=== PATIENT | male | born 1985 | race Two or more races ===

== ENCOUNTER 2017-02-06 14:50 | Emergency (ER) | payer SELFPAY ==
[2017-02-06] MEDS ORDERED: IV NORMAL SALINE 1,000ML 1,000 ML ONE (14:55)
[2017-02-06] MEDS ORDERED: ONDANSETRON PF 4 MG/2 ML VIAL. ONE (14:55)
[2017-02-06 15:14] LABS: BASO % 0 % (0-3); EOS # 0.1 x10^3/uL (0.0-0.7); EOS % 1 % (0-3); HEMATOCRIT 44.9 % (39.0-53.0); HEMOGLOBIN 15.4 g/dL (13.0-17.5); LYMPH # 2.7 x10^3/uL (1.0-4.8); LYMPH % 30 % (24-48); MEAN CORPUSCULAR HEMOGLOBIN 31 pg (25-35); MEAN CORPUSCULAR HGB CONC 34 g/dL (31-37); MEAN CORPUSCULAR VOLUME 89 fL (79-100); MONO # 0.6 x10^3/uL (0.0-1.1); MONO % 7 % (0-9); NEUT # 5.5 x10^3uL (1.8-7.7); NEUT % 62 % (31-73); PLATELET COUNT 280 x10^3/uL (140-400); RED BLOOD COUNT 5.07 x10^6/uL (4.30-5.70); RED CELL DISTRIBUTION WIDTH 12.7 % (11.5-14.5)
[2017-02-06] MEDS ORDERED: ETOMIDATE 40 MG/20 ML VIAL. IV ONE ×2 (15:30→16:00)
[2017-02-06] MEDS ORDERED: SUCCINYLCHOLINE 200 MG/10 ML VIAL. IV ONE (15:30)
[2017-02-06 15:33] LABS: ALBUMIN 4.1 g/dL (3.4-5.0); CALCIUM 8.8 mg/dL (8.5-10.1); CREATININE 1.5 mg/dL (0.7-1.3); DIRECT BILIRUBIN 0.3 mg/dL (0.0-0.2); GFR 55.3; POTASSIUM 3.7 mmol/L (3.5-5.1); TOTAL BILIRUBIN 1.6 mg/dL (0.2-1.0); TOTAL PROTEIN 8.3 g/dL (6.4-8.2)
[2017-02-06] MEDS ORDERED: PIP/TAZO PER PHARMACY MC PRN (15:45)
[2017-02-06] MEDS ORDERED: VECURONIUM 10 MG VIAL. IV ONE ×2 (16:00→17:45)
[2017-02-06] MEDS ORDERED: IV NORMAL SALINE 1,000ML 1,000 ML IV ONE ×3 (16:00→16:15)
[2017-02-06] MEDS ORDERED: SUCCINYLCHOLINE 200 MG/10 ML VIAL. ONE (16:00)
[2017-02-06] MEDS ORDERED: FENTANYL STANDARD PCA 30 ML IV PRN (16:00)
[2017-02-06] MEDS ORDERED: ROCURONIUM 50 MG/5 ML VIAL. ONE (16:00)
--- NOTE | 2017-02-06 16:04 | ED.ADGEN ---
Past History Additional Past Medical Histor: ams Adult General Chief Complaint Chief Complaint Altered mental status HPI HPI Patient is a 31 year old male who presents with her mental status. Patient brought in by EMS. Patient reportedly went to the [facility] where he was asked to perform a drug screen due to his parole conditions. He walked back out of the facility was witnessed walking across the street, vomited and fell to the ground. When EMS arrived the patient appeared somewhat responsive laying in his vomit but then became combative and received 10 intranasal Versed that calmed him down. They did not report any hypoxia. Patient has not been to our facility before, there is no drug paraphernalia noted to be on the patient, no signs of trauma. Review of Systems Review of Systems unAble to obtain due to medical condition Current Medications Current Medications Current Medications Medications (Trade) Dose Ordered Sig/Ashli Start Time Stop Time Status Last Admin Dose Admin Etomidate (Amidate) 20 mg 1X ONCE 02/06/17 15:30 02/06/17 16:29 DC 02/06/17 15:30 20 MG Fentanyl Citrate (Fentanyl 2ml Vial) 100 mcg 1X ONCE 02/06/17 17:40 02/06/17 17:41 02/06/17 17:16 100 MCG Lorazepam 100 mg/ Sodium Chloride 150 ml @ 1.5 mls/hr CONT PRN 02/06/17 16:50 02/06/17 16:50 DC Midazolam HCl 100 ml @ 0 mls/hr 1X ONCE 02/06/17 16:30 02/06/17 16:37 DC Midazolam HCl 5 mg 5 mg 1X ONCE 02/06/17 16:15 02/06/17 16:16 DC 02/06/17 16:15 5 MG Ondansetron HCl (Zofran) 4 mg STK-MED ONCE 02/06/17 14:55 02/06/17 14:56 DC Piperacillin Sod/ Tazobactam Sod (Zosyn Per Pharmacy) 1 each PRN DAILY PRN 02/06/17 15:45 Piperacillin Sod/ Tazobactam Sod 4.5 gm/Sodium Chloride 50 ml @ 100 mls/hr 1X ONCE 02/06/17 16:30 02/06/17 16:59 DC 02/06/17 16:30 100 MLS/HR Sodium Chloride (Iv Sodium Chloride 0.9% 1,000ml) 1,000 ml @ 1,000 mls/hr 1X ONCE 02/06/17 16:15 02/06/17 17:14 DC 02/06/17 16:15 1,000 MLS/HR Sodium Chloride (Iv Sodium Chloride 0.9% 500ml) 500 ml @ As Directed STK-MED ONCE 02/06/17 16:39 02/06/17 16:40 DC Succinylcholine Chloride 100 mg 100 mg 1X ONCE 02/06/17 15:30 02/06/17 16:29 DC 02/06/17 15:30 100 MG Vancomycin HCl 1 gm STK-MED ONCE 02/06/17 16:39 02/06/17 16:40 DC Vancomycin HCl 2 gm/Sodium Chloride 500 ml @ 250 mls/hr 1X ONCE 02/06/17 16:45 02/06/17 16:55 DC Allergies Allergies Allergies Coded Allergies Type Severity Reaction Last Updated Verified Unable to Assess 02/06/17 No Physical Exam Physical Exam Constitutional: Well developed, well nourished, no acute distress, non-toxic appearance. [] HENT: Normocephalic, atraumatic, bilateral external ears normal, oropharynx moist, no oral exudates, nose normal. [] Eyes: PERRLA, EOMI, conjunctiva normal, no discharge. [] Neck: Normal range of motion, no tenderness, supple, no stridor. [] Cardiovascular:Heart rate regular rhythm, no murmur [] Lungs & Thorax: Bilateral breath sounds clear to auscultation [] Abdomen: Bowel sounds normal, soft, no tenderness, no masses, no pulsatile masses. [] Skin: Warm, dry, no erythema, no rash. [] Back: No tenderness, no CVA tenderness. [] Extremities: No tenderness, no cyanosis, no clubbing, ROM intact, no edema. [] Neurologic: Alert and oriented X 3, normal motor function, normal sensory function, no focal deficits noted. [] Psychologic: Affect normal, judgement normal, mood normal. [] Current Patient Data Vital Signs Vital Signs Date Time Temp Pulse Resp B/P Pulse Ox O2 Delivery O2 Flow Rate FiO2 02/06/17 17:16 18 100 Ventilator 02/06/17 15:00 98.9 140 Lab Results Laboratory Tests Test 02/06/17 14:50 02/06/17 14:59 02/06/17 15:15 White Blood Count 9.0x10^3/uL (4.0-11.0) Red Blood Count 5.07x10^6/uL (4.30-5.70) Hemoglobin 15.4g/dL (13.0-17.5) Hematocrit 44.9% (39.0-53.0) Mean Corpuscular Volume 89fL (79-100) Mean Corpuscular Hemoglobin 31pg (25-35) Mean Corpuscular Hemoglobin Concent 34g/dL (31-37) Red Cell Distribution Width 12.7% (11.5-14.5) Platelet Count 280x10^3/uL (140-400) Neutrophils (%) (Auto) 62% (31-73) Lymphocytes (%) (Auto) 30% (24-48) Monocytes (%) (Auto) 7% (0-9) Eosinophils (%) (Auto) 1% (0-3) Basophils (%) (Auto) 0% (0-3) Neutrophils # (Auto) 5.5x10^3uL (1.8-7.7) Lymphocytes # (Auto) 2.7x10^3/uL (1.0-4.8) Monocytes # (Auto) 0.6x10^3/uL (0.0-1.1) Eosinophils # (Auto) 0.1x10^3/uL (0.0-0.7) Basophils # (Auto) 0.0x10^3/uL (0.0-0.2) Sodium Level 137mmol/L (136-145) Potassium Level 3.7mmol/L (3.5-5.1) Chloride Level 101mmol/L (98-107) Carbon Dioxide Level 24mmol/L (21-32) Anion Gap 12 (6-14) Blood Urea Nitrogen 12mg/dL (8-26) Creatinine 1.5mg/dL (0.7-1.3) H Estimated GFR (Cockcroft-Gault) 55.3 Glucose Level 162mg/dL (70-99) H Lactic Acid Level 6.8mmol/L (0.4-2.0) *H Calcium Level 8.8mg/dL (8.5-10.1) Total Bilirubin 1.6mg/dL (0.2-1.0) H Direct Bilirubin 0.3mg/dL (0.0-0.2) H Aspartate Amino Transferase (AST) 74U/L (15-37) H Alanine Aminotransferase (ALT) 63U/L (16-63) Alkaline Phosphatase 80U/L (46-116) Ammonia 87mcmol/L (11-34) H Total Protein 8.3g/dL (6.4-8.2) H Albumin 4.1g/dL (3.4-5.0) Ethyl Alcohol Level < 10mg/dL (0-10) Creatine Kinase 1866U/L (39-308) H Urine Collection Type Unknown Urine Color Yellow Urine Clarity Clear Urine pH 5.5 Urine Specific [place] 1.020 Urine Protein 30 mg/dl (NEG-TRACE) Urine Glucose (UA) Negmg/dL (NEG) Urine Ketones (Stick) Negmg/dL (NEG) Urine Blood Neg (NEG) Urine Nitrite Neg (NEG) Urine Bilirubin Neg (NEG) Urine Urobilinogen Dipstick 0.2mg/dL (0.2 mg/dL) Urine Leukocyte Esterase Neg (NEG) Urine RBC Occ/HPF (0-2) Urine WBC Occ/HPF (0-4) Urine Squamous Epithelial Cells None/LPF Urine Bacteria 0/HPF (0-FEW) Urine Hyaline Casts Few/HPF Urine Mucus Mod/LPF Urine Opiates Screen Neg (NEG) Urine Methadone Screen Neg (NEG) Urine Barbiturates Neg (NEG) Urine Phencyclidine Screen Neg (NEG) Urine Amphetamine/Methamphetamine Neg (NEG) Urine Benzodiazepines Screen Pos (NEG) Urine Cocaine Screen Neg (NEG) Urine Cannabinoids Screen Neg (NEG) Urine Ethyl Alcohol Neg (NEG) EKG EKG 134 bpm, sinus tach, normal axis, normal intervals, no appreciable ST elevation or depression, nonischemic T waves, interpreted by me [] Radiology/Procedures Radiology/Procedures 1 View chest x-ray shows appropriate placement of the OG tube and the endotracheal tube, no significant pulmonary opacity noted, lungs appeared inflated, no obvious bony injury, normal cardiac silhouette, interpreted by me [ ] CT results reviewed. Indication: resp acidosis, altered mental status Consent: emergent Medications Used: etomidate, succinycholine Procedure: The patient was placed in the neutral. . Intubation was performed direct glidescope visualization. 7.5 endotracheal tube. 23 at teeth. Initial confirmation of placement included [id number], . A chest x-ray to verify correct placement of the tube good placement. There was vomit in patient's oralpharynx, did not require suction. The patient tolerated the procedure well. Complications: none Indication: septic Consent: emergent Procedure: The patient was positioned appropriately and the skin over the R femoral vein was chlorhexadine.. Local anesthesia was not used.. A large bore needle was used to identify the vein. A guide wire was then inserted into the vein through the needle. was then inserted into the vessel over the guide wire using the Seldinger technique. All ports showed good, free flowing blood return and were flushed with saline solution. The catheter was then securely fastened to the skin and covered with a sterile dressing. Complications: none Course & Med Decision Making Course & Med Decision Making Pertinent Labs and Imaging studies reviewed. (See chart for details) pt seen upon arrival. Hypoxic and O2 placed on the patient. 2 IVs established , 1 L fluids ordered, ABG shows hypercapnic resp acidosis. Proceeded to intubate as the pt is not bipap option. Intubated. Lactate elevated, 2 more liters IV fluid ordered. Pt given IV zosyn. patel and og. Pt maintaining his blood pressure. IV vanc ordered, total 3 liters fluids. Pt on drips for sedation. Talked with Dr. Olmos at [facility] who accepted pt. Cause for severe symptoms unknown. UDS + benzos only. ++ ammonia level Final Impression Final Impression acute respiratory failure lactic acidosis metabolic encephalopathy acute renal failure[] Problems: Dragon Disclaimer Dragon Disclaimer This electronic medical record was generated, in whole or in part, using a voice recognition dictation system. HERVE OAKLEY MD Feb 06, 2017 16:04
[2017-02-06 16:08] LABS: AMPHETAMINE/METHAMPHETAMINE NEG (NEG); BARBITURATES NEG (NEG); BENZODIAZEPINES POS (NEG); CANNABINOIDS NEG (NEG); COCAINE NEG (NEG); METHADONE NEG (NEG); OPIATES NEG (NEG); PHENCYCLIDINE NEG (NEG)
--- NOTE | 2017-02-06 16:08 | RAD ---
Portable chest, 02/06/2017: History: Altered mental status, possible aspiration The ET tube tip lies 2.5 cm above the grayson. An NG tube extends into the stomach. The heart is at the upper limits of normal in size. The pulmonary vascularity is normal. No pulmonary infiltrate is seen. There is no evidence of pleural fluid. IMPRESSION: 1. The ET tube and NG tube are in satisfactory positions. 2. No acute cardiopulmonary abnormality is detected.
[2017-02-06 16:14] LABS: BILIRUBIN,URINE NEG (NEG); CLARITY,URINE CLEAR; COLOR,URINE YELLOW; GLUCOSE,URINE NEG (NEG); NITRITE,URINE NEG (NEG); RBC,URINE OCC /HPF (0-2); UROBILINOGEN,URINE 0.2 mg/dL (0.2 mg/dL); WBC,URINE OCC /HPF (0-4)
[2017-02-06 16:15] LABS: BACTERIA,URINE 0 /HPF (0-FEW); HYALINE CASTS, URINE FEW /HPF
[2017-02-06] MEDS ORDERED: MIDAZOLAM HCL 5 MG/5 ML VIAL IV ONE (16:15)
[2017-02-06] MEDS ORDERED: MIDAZOLAM PREMIX 100 ML IV ONE ×2 (16:15→16:30)
[2017-02-06] MEDS ORDERED: PIPERACILLIN/TAZOBACTAM 4.5 GM in IV NORMAL SALINE 50ML 50 ML IV ONE (16:30)
--- NOTE | 2017-02-06 16:32 | RAD ---
CT scan of the head without contrast 02/06/2017 Clinical history: Found unconscious in a pool of vomit. Technique: Unenhanced, contiguous, 5 mm axial sections were obtained through the head. One or more of the following individualized dose reduction techniques were utilized for this study: 1. Automated exposure control. 2. Adjustment of the mA and/or kV according to patient size. 3. Use of iterative reconstruction technique. Findings: Images are degraded by patient motion. The ventricles and sulci are within normal limits in size and configuration. No acute parenchymal abnormality is seen. No extra-axial fluid collection is seen. No skull fracture is noted. Impression: No acute abnormality is seen. CT scan of the cervical spine without contrast 02/06/2017 Clinical history: Found unconscious. Possible neck injury. Technique: Unenhanced, contiguous, 0.625 mm axial sections were obtained through the cervical spine. 3 mm reconstructed sagittal, axial, and and coronal images were obtained. One or more of the following individualized dose reduction techniques were utilized for this study: 1. Automated exposure control. 2. Adjustment of the mA and/or kV according to patient size. 3. Use of iterative reconstruction technique. Findings: Images from this study are degraded by patient motion. Sagittal and coronal reconstructed images demonstrate ET and NG tubes in place. There is straightening of the normal cervical lordosis. No fracture or subluxation of the cervical vertebrae is definitely seen. Impression: No fracture or subluxation of the cervical vertebra is definitely seen.
--- NOTE | 2017-02-06 16:36 | RAD ---
CT scan of the abdomen and pelvis without contrast 02/06/2017 Clinical history: The patient was found unconscious in a pool of vomit. Technique: Unenhanced, contiguous, 5 mm axial sections were obtained through the abdomen and pelvis. One or more of the following individualized dose reduction techniques were utilized for this study: 1. Automated exposure control. 2. Adjustment of the mA and/or kV according to patient size. 3. Use of iterative reconstruction technique. Findings: Images through the lung bases demonstrate borderline cardiomegaly. Bilateral dependent lower lobe atelectasis and/or infiltrate is noted. A NG tube is seen extending to the body of the stomach. The liver, spleen, pancreas, adrenal glands and kidneys are within normal limits. The abdominal aorta tapers normally. The gallbladder is slightly contracted. No free fluid or free air is seen within the abdomen. There is no evidence of bowel obstruction. Air and stool is seen throughout the colon. The appendix is well visualized and is within normal limits. Images through the pelvis demonstrate a Devlin catheter within the urinary bladder which is slightly contracted. Calcifications are seen within the pelvis consistent with phleboliths. No free fluid is seen. Minimal S shaped curvature of the thoracolumbar spine is noted. Impression: 1. Bilateral lower lobe atelectasis and/or infiltrate. 2. No acute abnormality is seen involving the abdomen or pelvis.
[2017-02-06] MEDS ORDERED: VANCOMYCIN 1 GM VIAL. ONE (16:39)
[2017-02-06] MEDS ORDERED: IV NORMAL SALINE 500ML 500 ML ONE (16:39)
[2017-02-06] MEDS ORDERED: VANCOMYCIN 2 GM in IV NORMAL SALINE 500ML 500 ML IV ONE ×4 (16:45)
[2017-02-06] MEDS ORDERED: LORAZEPAM IV PRN (16:50)
[2017-02-06] MEDS ORDERED: NORMAL SALINE IV PRN (16:50)
[2017-02-06] MEDS ORDERED: FENTANYL PF 100 MCG/2 ML VIAL. ONE (17:03)
[2017-02-06 17:28] LABS: BGAS PH 7.23 (7.35-7.46)
[2017-02-06 17:30] VITALS: BP 106/50
[2017-02-06 17:30] LABS: BGAS PH 7.32 (7.35-7.46)
[2017-02-06] MEDS ORDERED: FENTANYL PF 100 MCG/2 ML VIAL. IV ONE (17:40)
--- NOTE | 2017-02-06 18:22 | EKG ---
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
== END 2017-02-06 17:58 | disposition short-term general hospital (02) ==
LOC: ER 14:50
DX: J96.00 Acute respiratory failure, unspecified whether with hypoxia or hypercapnia (principal); E87.2 Acidosis; G93.41 Metabolic encephalopathy; N17.9 Acute kidney failure, unspecified; R41.82 Altered mental status, unspecified
CPT/HCPCS: 31500; 36415; 36556; 36600; 51702; 70450; 71010; 72125; 74176; 80048; 80076; 80305; 80320; 81001; 82140; 82550; 82803; 83605; 85027; 87040; 93005; 94002; 96361; 96365; 96368; 96375; 99285; J0330; J2250; J2543; J3010; J3370; J7040; G0480; G0481; J7030